=== PATIENT | female | born 1995 | race Caucasian/White ===

== ENCOUNTER 2017-02-25 20:33 | Emergency (ER) | payer MEDICAID ==
--- NOTE | 2017-02-25 21:45 | ED Physician Documentation ---
History of Present Illness - Stated complaint Stated Complaint: BODY ACHES - Chief complaint Chief Complaint: General - History obtained from History obtained from: Patient - History of Present Illness Timing: How many weeks ago (8) Improved by: no ameliorating factors Worsened by: no exacerbating factors - Additonal information Additional information: patient has multiple complaints which all started approximately eight weeks ago , immediately after she received a left arm -control implant device. He complains of fatigue, confusion, abdominal pain, generalized myalgias and aches. Patient moved to [facility] 2 1/2 months ago. Review of Systems Constitutional: reports: Myalgias, Fatigue. denies: Fever Cardiac: reports: Reviewed and negative Respiratory: denies: Dyspnea GI: reports: Abdominal Pain. denies: Vomiting : denies: Dysuria Skin: denies: Rash Musculoskeletal: denies: Extremity pain Neurologic: reports: Confused, Headache. 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 : None HEENT: None Psych: None Musculoskeletal: None Derm: None - Past Surgical History Past Surgical History: No - Present Medications Home Medications: Ambulatory Orders Medication Instructions Recorded Confirmed No Known Home Medications [No 02/25/17 02/25/17 Known Home Medications] - Allergies Allergies/Adverse Reactions: Allergies Allergy/AdvReac Type Severity Reaction Status Date / Time No Known Drug Allergies Allergy Verified 02/25/17 20:43 - Social History Does the pt smoke?: Yes Smoking Status: Current every day smoker Does the pt drink ETOH?: No Does the pt have substance abuse?: No - Immunizations Immunizations are current?: Yes - POLST Patient has POLST: No PD ED PE NORMAL - Vitals Vital signs reviewed: Yes - General General: Alert and oriented X 3, No acute distress, Well developed/nourished - HEENT HEENT: PERRL, EOMI, Moist mucous membranes - Neck Neck: Supple, no meningeal sign - Cardiac Cardiac: RRR, No murmur - Respiratory Respiratory: No respiratory distress, Clear bilaterally - Abdomen Abdomen: Soft, Non tender - Derm Derm: No rash - Neuro Neuro: Alert and oriented X 3, sustainable design coordinator 2-12 intact, No motor deficit, No sensory deficit, Normal speech Eye Opening: Spontaneous Motor: Obeys Commands Verbal: Oriented GCS Score: 15 Results - Vitals Vitals: Oxygen O2 Source Room air - Labs Labs: Laboratory Tests 02/25/17 02/25/17 02/25/17 22:24 22:34 22:34 WBC 13.3 H RBC 4.25 Hgb 12.4 Hct 37.1 MCV 87.3 MCH 29.2 MCHC 33.4 RDW 13.3 Plt Count 248 MPV 8.4 Neut # 8.1 H Lymph # 3.9 H [place] # 0.9 Eos # 0.4 Baso # 0.2 H Absolute Nucleated RBC 0.01 Nucleated RBC % 0.0 Sodium Potassium Chloride Carbon Dioxide Anion Gap BUN Creatinine Estimated GFR (MDRD) Glucose Calcium Total Bilirubin AST ALT Alkaline Phosphatase Total Protein Albumin Globulin Albumin/Globulin Ratio Lipase Urine Color YELLOW Urine Clarity CLEAR Urine pH 6.5 Ur Specific [place] 1.025 1.025 Urine Protein NEGATIVE Urine Glucose (UA) NEGATIVE Urine Ketones NEGATIVE Urine Occult Blood NEGATIVE Urine Nitrite NEGATIVE Urine Bilirubin NEGATIVE Urine Urobilinogen 0.2 (NORMAL) Ur Leukocyte Esterase NEGATIVE Ur Microscopic Review NOT INDICATED Urine Culture Comments NOT INDICATED Urine HCG, Qual NEGATIVE 02/25/17 22:43 WBC RBC Hgb Hct MCV MCH MCHC RDW Plt Count MPV Neut # Lymph # [place] # Eos # Baso # Absolute Nucleated RBC Nucleated RBC % Sodium 139 Potassium 3.8 Chloride 105 Carbon Dioxide 24 Anion Gap 10.0 BUN 10 Creatinine 0.5 Estimated GFR (MDRD) 157 Glucose 92 Calcium 9.2 Total Bilirubin < 0.2 L AST 14 ALT 13 Alkaline Phosphatase 71 Total Protein 7.7 Albumin 3.9 Globulin 3.8 Albumin/Globulin Ratio 1.0 Lipase 25 Urine Color Urine Clarity Urine pH Ur Specific [place] Urine Protein Urine Glucose (UA) Urine Ketones Urine Occult Blood Urine Nitrite Urine Bilirubin Urine Urobilinogen Ur Leukocyte Esterase Ur Microscopic Review Urine Culture Comments Urine HCG, Qual PD MEDICAL DECISION MAKING - ED course Complexity details: reviewed results, re-evaluated patient, considered differential, d/w patient ED course: there is a broad differential diagnosis given her variety of complaints, although her appearance and physical exam suggest against an emergent, specific , or serious diagnosis. Blood tests and urinalysis are unremarkable except for mild leukocytosis. these results were discussed with the patient who expressed that she was reassured by the remarkable results. Departure - Departure Disposition: 01 Home, Self Care Clinical Impression: Generalized muscle ache Condition: Good Instructions: ED Symptoms No Dx Follow-Up: [facility] [Provider Group] Comments: With the exception of a mild elevation in your white blood cell count, your blood tests and urinalysis were otherwise normal. These results are reassuring even though they have not resulted in a diagnosis. The elevated white blood cell count is nonspecific (does not suggest a particular diagnosis), and is not elevated to an extent that would need further testing at this time. Discharge Date/Time: 02/25/17 23:46
[2017-02-25 22:45] LABS: BILIRUBIN,TOTAL < 0.2 mg/dL (0.2-1.0); BUN - BLOOD UREA NITROGEN 10 mg/dL (6-20); CALCIUM 9.2 mg/dL (8.5-10.3); CARBON DIOXIDE - CO2 24 mmol/L (21-32); CHLORIDE 105 mmol/L (101-111); CREATININE 0.5 mg/dL (0.4-1.0); GFR - MDRD 157 (>89); GLUCOSE 92 mg/dL (70-100); LIPASE 25 U/L (22-51); POTASSIUM 3.8 mmol/L (3.5-5.0); SODIUM 139 mmol/L (135-145); TOTAL PROTEIN 7.7 g/dL (6.7-8.2)
[2017-02-25 22:49] LABS: BASOPHILS # (AUTO) 0.2 10^3/uL (0.0-0.1); BASOPHILS % (AUTO) 1.2 %; EOSINOPHILS # (AUTO) 0.4 10^3/uL (0.0-0.7); EOSINOPHILS % (AUTO) 2.6 %; HCT - HEMATOCRIT 37.1 % (37.0-47.0); HGB - HEMOGLOBIN 12.4 g/dL (12.0-16.0); LYMPHOCYTES # (AUTO) 3.9 10^3/uL (1.5-3.5); MEAN CORPUSCULAR HEMOGLOBIN 29.2 pg (27.0-31.0); MEAN CORPUSCULAR HGB CONC 33.4 g/dL (32.0-36.0); MEAN CORPUSCULAR VOLUME 87.3 fL (81.0-99.0); MEAN PLATELET VOLUME 8.4 fL (7.9-10.8); MONOCYTES # (AUTO) 0.9 10^3/uL (0.0-1.0); MONOCYTES % (AUTO) 6.6 %; NEUTROPHILS # (AUTO) 8.1 10^3/uL (1.5-6.6); NEUTROPHILS % (AUTO) 60.6 %; RED BLOOD COUNT 4.25 10^6/uL (4.20-5.40); RED CELL DISTRIBUTION WIDTH 13.3 % (12.0-15.0); UNCORRECTED WHITE BLOOD COUNT 13.3 x10^3/uL; WHITE BLOOD COUNT 13.3 x10^3/uL (4.8-10.8)
[2017-02-25 22:59] LABS: BILIRUBIN,URINE NEGATIVE (NEGATIVE); PH,URINE 6.5 PH (5.0-7.5)
[2017-02-25 23:01] LABS: UA CHARGE (STRIP ONLY) YES; UR CULTURE IF IND NOT INDICATED
[2017-02-25 23:02] LABS: HCG UR QUAL NEGATIVE
[2017-02-25 23:46] VITALS: BP 119/70
== END 2017-02-25 23:46 | disposition home or self-care (01) ==
LOC: ED 20:33
DX: M79.1 Myalgia (principal); D72.829 Elevated white blood cell count, unspecified; F17.200 Nicotine dependence, unspecified, uncomplicated
CPT/HCPCS: 36415; 80053; 81001; 81003; 81025; 83690; 85025; 87086; 99282; 99283

== ENCOUNTER 2017-04-05 20:14 | Emergency (ER) | payer MEDICAID ==
[2017-04-05 20:23] VITALS: BP 134/85
[2017-04-05] MEDS ORDERED: IPRATROPIUM/ALBUTEROL 3 ML NEB INH STA (20:44)
[2017-04-05] MEDS ORDERED: predniSONE 20 MG TABLET PO STA (20:44)
[2017-04-05 20:58] LABS: HCG UR QUAL NEGATIVE
--- NOTE | 2017-04-05 21:47 | XRAY Preliminary Report ---
Exam: XR CHEST 2 VIEW X-RAY IMPRESSION: Negative chest. [facility] SITE ID: [id number]
--- NOTE | 2017-04-05 21:47 | XRAY Report ---
EXAM: CHEST RADIOGRAPHY EXAM DATE: 04/05/2017 09:29 PM. CLINICAL HISTORY: Fever, cough. COMPARISON: None. TECHNIQUE: 2 views. FINDINGS: Lungs/Pleura: No focal opacities evident. No pleural effusion. No pneumothorax. Normal volumes. Mediastinum: Heart and mediastinal contours are unremarkable. Other: None. IMPRESSION: Negative chest. [facility] Referring Provider Line: [phone] SITE ID: [id number]
--- NOTE | 2017-04-05 22:08 | ED Physician Documentation ---
PD HPI DYSPNEA - Stated complaint Stated Complaint: SOA - Chief complaint Chief Complaint: Resp - History obtained from History obtained from: Patient, Family - History of Present Illness Timing - onset: How many weeks ago (1) Timing - details: Gradual onset, Still present Worsened by: Coughing, Smoke Associated symptoms: Cough, Wheezing. No: Fever Similar symptoms before: No diagnosis Recently seen: Not recently seen - Additional information Additional information: Patient is a 21 year old female with a history of asthma and daily smoking who is presenting to the emergency department for coughing and shortness of breath. Patient states that it has been going on for about the last week and is getting progressively worse. Patient states that her chest felt tighter today so she came in for evaluation. Review of Systems Constitutional: denies: Fever, Chills Eyes: denies: Decreased vision, Photophobia Ears: denies: Ear pain, Drainage/discharge Nose: reports: Congestion, Sinus pressure / pain Throat: denies: Sore throat Cardiac: denies: Chest pain / pressure, Palpitations, Pedal edema, Calf pain Respiratory: reports: Dyspnea, Cough, Wheezing GI: denies: Nausea, Vomiting : reports: Reviewed and negative Skin: denies: Rash, Lesions Musculoskeletal: denies: Extremity swelling Neurologic: reports: Reviewed and negative PD PAST MEDICAL HISTORY - Past Medical History Cardiovascular: None Respiratory: None Neuro: None Endocrine/Autoimmune: None GI: None RECTIFYING ATTENDANT: None : None HEENT: None Psych: None Musculoskeletal: None Derm: None - Past Surgical History Past Surgical History: No - Present Medications Home Medications: Ambulatory Orders Medication Instructions Recorded Confirmed Albuterol Sulfate [Proventil Hfa 1 - 2 puffs INH Q4H PRN #1 inhaler 04/05/17 Inhaler] predniSONE [Prednisone] 40 mg PO DAILY 5 Days tablet 04/05/17 - Allergies Allergies/Adverse Reactions: Allergies Allergy/AdvReac Type Severity Reaction Status Date / Time No Known Drug Allergies Allergy Verified 02/25/17 20:43 - Social History Does the pt smoke?: Yes Smoking Status: Current every day smoker Does the pt drink ETOH?: No Does the pt have substance abuse?: No - Immunizations Immunizations are current?: Yes - POLST Patient has POLST: No PD ED PE NORMAL - Vitals Vital signs reviewed: Yes - General General: Alert and oriented X 3, No acute distress - HEENT HEENT: Atraumatic, PERRL, Pharynx benign - Neck Neck: Supple, no meningeal sign, No JVD - Cardiac Cardiac: RRR, No murmur, No rub - Abdomen Abdomen: Soft, Non tender, Non distended - Derm Derm: Normal color, Warm and dry, No rash - Extremities Extremities: No deformity, No edema, No calf tenderness / cord - Neuro Neuro: Alert and oriented X 3, No motor deficit, No sensory deficit, Normal speech PD ED PE EXPANDED - Respiratory Respiratory: Wheezing, Right lower lobe, Left lower lobe Results - Vitals Vitals: Vital Signs - 24 hr 04/05/17 04/05/17 20:21 21:00 Temperature 36.5 C Heart Rate 107 H 108 H Respiratory 24 22 Rate Blood Pressure 134/85 H O2 Saturation 96 Oxygen O2 Source Room air - Labs Labs: Laboratory Tests 04/05/17 20:35 Ur Specific [place] 1.025 Urine HCG, Qual NEGATIVE - Rads (name of study) chest x-ray Radiology: Final report received (no acute pathology) PD MEDICAL DECISION MAKING - ED course Complexity details: reviewed old records, reviewed results, re-evaluated patient , considered differential, d/w patient, d/w family ED course: Patient was seen and examined at bedside. Patient had bilateral wheezing and was treated with duonebs and steroids. Chest x-ray was performed and within normal limits. Patient responded to the nebulizer treatments and the wheezing resolved. Patient required no further work up and was stable for discharge with outpatient follow up. Departure - Departure Disposition: 01 Home, Self Care Clinical Impression: Bronchitis Condition: Good Instructions: ED Bronchitis Asthmatic Follow-Up: primary,care provider [Other] - Within 3 Days Prescriptions: Albuterol Sulfate [Proventil Hfa Inhaler] 1 - 2 puffs INH Q4H PRN #1 inhaler PRN Reason: Shortness Of Air/Wheezing predniSONE [Prednisone] 40 mg PO DAILY 5 Days tablet Comments: Your chest x-ray was normal today. there was no sign of pneumonia. You should take the steroids for the next 4 days and use the inhaler every 2 to 4 hours as needed. The most important thing you can do is to quit smoking. You should follow up with your doctor for routine care. You may return to the emergency department at any time for new, worsening or uncontrollable symptoms. Discharge Date/Time: 04/05/17 22:14
== END 2017-04-05 22:14 | disposition home or self-care (01) ==
LOC: ED 20:14
DX: J40 Bronchitis, not specified as acute or chronic (principal); F17.200 Nicotine dependence, unspecified, uncomplicated
CPT/HCPCS: 71046; 81025; 94640; 99283; J7512; J7620

== ENCOUNTER 2017-08-08 20:50 | Emergency (ER) | payer MEDICAID ==
[2017-08-08] MEDS ORDERED: IPRATROPIUM/ALBUTEROL 3 ML NEB INH STA ×2 (21:19→21:41)
[2017-08-08] MEDS ORDERED: predniSONE 20 MG TABLET PO STA (21:41)
[2017-08-08 22:35] VITALS: BP 104/61
--- NOTE | 2017-08-08 22:57 | ED Physician Documentation ---
PD HPI DYSPNEA - Stated complaint Stated Complaint: SOA/COUGH - Chief complaint Chief Complaint: Resp - History obtained from History obtained from: Patient - History of Present Illness Timing - onset: Yesterday Timing - onset during: Rest Timing - details: Gradual onset, Still present Inciting event(s): Exposure (ie smoke) Associated symptoms: Cough, Wheezing Similar symptoms before: Work up / diagnostics, Treatment Recently seen: Not recently seen - Additional information Additional information: Patient is a 21 year old female with a history of asthma who is presenting to the emergency department for shortness of breath and wheezing. Patient states that her symptoms have been going on the last few days but she does not have an inhaler. 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 : None HEENT: None Psych: None Musculoskeletal: None Derm: None - Past Surgical History Past Surgical History: No - Present Medications Home Medications: Ambulatory Orders Medication Instructions Recorded Confirmed Albuterol Sulfate [Proventil Hfa 1 - 2 puffs INH Q4H PRN #1 inhaler 04/05/17 Inhaler] predniSONE [Prednisone] 40 mg PO DAILY 5 Days tablet 04/05/17 Albuterol Sulfate [Proventil Hfa 1 - 2 puffs INH Q4H PRN #1 inhaler 08/08/17 Inhaler] Benzonatate [Tessalon Perle] 100 mg PO TID #14 capsule 08/08/17 predniSONE [Prednisone] 40 mg PO DAILY 5 Days tablet 08/08/17 - Allergies Allergies/Adverse Reactions: Allergies Allergy/AdvReac Type Severity Reaction Status Date / Time No Known Drug Allergies Allergy Verified 08/08/17 20:56 - Social History Does the pt smoke?: Yes Smoking Status: Current every day smoker Does the pt drink ETOH?: No Does the pt have substance abuse?: No - Immunizations Immunizations are current?: Yes - POLST Patient has POLST: No PD ED PE NORMAL - Vitals Vital signs reviewed: Yes - General General: Alert and oriented X 3 - HEENT HEENT: Atraumatic - Abdomen Abdomen: Non distended - Derm Derm: Normal color, Warm and dry - Extremities Extremities: No edema, No calf tenderness / cord - Neuro Neuro: Alert and oriented X 3 Eye Opening: Spontaneous PD ED PE EXPANDED - Cardiac Cardiac: Tachy - Respiratory Respiratory: Accessory mm use, Wheezing, Right upper lobe, Right middle lobe, Right lower lobe, Left upper lobe, Left lower lobe Results - Vitals Vitals: Vital Signs - 24 hr 08/08/17 08/08/17 08/08/17 20:53 21:30 21:43 Temperature 36.0 C L Heart Rate 125 H 124 H 133 H Respiratory 24 24 20 Rate Blood Pressure 124/80 142/94 H O2 Saturation 98 95 08/08/17 08/08/17 08/08/17 21:49 22:34 23:08 Temperature Heart Rate 128 H 133 H Respiratory 20 17 17 Rate Blood Pressure 104/61 O2 Saturation 96 Oxygen O2 Source Nasal cannula PD MEDICAL DECISION MAKING - ED course Complexity details: reviewed old records, reviewed results, re-evaluated patient , considered differential, d/w patient ED course: Patient was seen and examined at bedside. Patient had diffuse wheezing in every field. patient was treated with duoneb and steroids empirically. Patient improved but continued to wheeze. Patient was treated with two additional duonebs. Patient responded well and her wheezing nearly resolved. Patient stated she was feeling much better and ready to return home. Patient required no further work up and was stable for discharge with outpatient follow up. Departure - Departure Disposition: 01 Home, Self Care Clinical Impression: Asthma Condition: Good Instructions: Asthma Dc Follow-Up: primary,care provider [Other] - Within 3 Days Prescriptions: Albuterol Sulfate [Proventil Hfa Inhaler] 1 - 2 puffs INH Q4H PRN #1 inhaler PRN Reason: Shortness Of Air/Wheezing Benzonatate [Tessalon Perle] 100 mg PO TID #14 capsule predniSONE [Prednisone] 40 mg PO DAILY 5 Days tablet Comments: Your symptoms today are being caused by an asthma exacerbation. You are being started on a short course of steroids and being prescribed an inhaler. You can take tessalon as needed for cough, as well as over the counter cough and cold medications. You should follow up with your doctor if your symptoms persist. You may return to the emergency department at any time for new, worsening or uncontrollable sympotms. Discharge Date/Time: 08/08/17 23:09
== END 2017-08-08 23:09 | disposition home or self-care (01) ==
LOC: ED 20:50
DX: J45.901 Unspecified asthma with (acute) exacerbation (principal); F17.200 Nicotine dependence, unspecified, uncomplicated; Z79.51 Long term (current) use of inhaled steroids
CPT/HCPCS: 94640; 94664; 99283; J7512

== ENCOUNTER 2018-11-20 16:24 | Emergency (ER) | payer MEDICAID ==
--- NOTE | 2018-11-20 20:27 | ED Physician Documentation ---
PD HPI UPPER EXT INJURY - Stated complaint Stated Complaint: L HAND NUMBNESS - Chief complaint Chief Complaint: Ext Problem - History obtained from History obtained from: Patient - History of Present Illness Location: Left, Wrist, Hand Type of injury: Other (she awoke from a nap with left arm/wrist feeling weak and numbness of hand, mainly radial side (thumb and index finger). She can lift at shoulder okay. She has been having left lower molar tooth pain for days and has appt with dentist in few days.). No: Fall, Twist Where injury occurred: Home Timing - onset: Today Timing - details: Abrupt onset, Still present Worsened by: Moving Associated symptoms: Weakness (wrist and hand), Numbness Similar symptoms before: Has not had sx before Review of Systems Constitutional: denies: Fever, Chills, Myalgias Throat: reports: Dental pain / toothache (left lower molar with pain and gum swelling) Skin: denies: Rash, Lesions Musculoskeletal: reports: Neck pain (lateral neck when awoke.). 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 : None HEENT: None Psych: None Musculoskeletal: None Derm: None - Past Surgical History Past Surgical History: No - Present Medications Home Medications: Ambulatory Orders Medication Instructions Recorded Confirmed Albuterol Sulfate [Proventil Hfa 1 - 2 puffs INH Q4H PRN #1 inhaler 04/05/17 Inhaler] predniSONE [Prednisone] 40 mg PO DAILY 5 Days tablet 04/05/17 Albuterol Sulfate [Proventil Hfa 1 - 2 puffs INH Q4H PRN #1 inhaler 08/08/17 Inhaler] Benzonatate [Tessalon Perle] 100 mg PO TID #14 capsule 08/08/17 predniSONE [Prednisone] 40 mg PO DAILY 5 Days tablet 08/08/17 Doxycycline Hyclate 100 mg PO BID #20 capsule 11/20/18 Methocarbamol [Robaxin] 500 mg PO Q6H PRN #30 tablet 11/20/18 Naproxen 500 mg PO BID #20 tablet 11/20/18 - Allergies Allergies/Adverse Reactions: Allergies Allergy/AdvReac Type Severity Reaction Status Date / Time No Known Drug Allergies Allergy Verified 11/20/18 16:34 - Social History Does the pt smoke?: Yes Smoking Status: Current every day smoker Does the pt drink ETOH?: No Does the pt have substance abuse?: No - Immunizations Immunizations are current?: Yes - POLST Patient has POLST: No PD ED PE NORMAL - Vitals Vital signs reviewed: Yes - General General: Alert and oriented X 3, No acute distress, Well developed/nourished - HEENT HEENT: No: Dentition benign (left lower 3rd molar with cavity and tissue partial impaction, with mild gum swelling but no fluctuance. Left anterior neck with tenderness but no swelling nor adenopathy. No redness. ) - Neck Neck: Supple, no meningeal sign, No bony TTP - Derm Derm: Normal color, Warm and dry - Extremities Extremities: Other (left wrist and hand with weakness, minimal shift boss. Thumb and index with decreased sensation. Elbow and shoulder movement is good. ) - Neuro Neuro: Alert and oriented X 3, stamping die try out worker 2-12 intact, Normal speech Eye Opening: Spontaneous Motor: Obeys Commands Verbal: Oriented GCS Score: 15 Results - Vitals Vitals: Oxygen O2 Source Room air PD MEDICAL DECISION MAKING - ED course Complexity details: considered differential (she had woken up with arm weakness and numbness and wrist drop. I think it was more positional with radial nerve palsy and not related to dental pain. ), d/w patient Departure - Departure Disposition: 01 Home, Self Care Clinical Impression: Dental infection Neuropraxia of left upper extremity Qualifiers: Encounter type: initial encounter Qualified Code(s): S44.92XA - Injury of unspecified nerve at shoulder and upper arm level, left arm, initial encounter Condition: Stable Record reviewed to determine appropriate education?: Yes Instructions: ED Palsy Radial Nerve Follow-Up: [facility] [Provider Group] [facility] [Provider Group] [facility] [Provider Group] Prescriptions: Doxycycline Hyclate 100 mg PO BID #20 capsule Methocarbamol [Robaxin] 500 mg PO Q6H PRN #30 tablet PRN Reason: Spasms Naproxen 500 mg PO BID #20 tablet Comments: Doxycycline and ibuprofen for your dental pain and infection. I presume your left arm weakness is from stretch and inflammation of the nerves into the shoulder and from the neck. Use a sling to reduce the amount of stretch on the shoulder. Ibuprofen again as an anti-inflammatory. Robaxin muscle relaxant for stiffness around the shoulder and neck. Recheck if not improved over the next few days regarding the arm. Follow-up with your dentist regarding the tooth. Forms: Activity restrictions Discharge Date/Time: 11/20/18 21:10
[2018-11-20] MEDS ORDERED: IBUPROFEN 600 MG TABLET PO STA (20:43)
[2018-11-20] MEDS ORDERED: CHERRY SYRUP 10 ML UDC PO ONE (20:44)
[2018-11-20] MEDS ORDERED: DOXYCYCLINE 100 MG TABLET PO STA (20:44)
[2018-11-20] MEDS ORDERED: DEXAMETHASONE 10 MG/ML VIAL PO STA (20:44)
[2018-11-20] MEDS ORDERED: METHOCARBAMOL 500 MG TABLET PO STA (20:44)
[2018-11-20 21:10] VITALS: BP 131/66
== END 2018-11-20 21:10 | disposition home or self-care (01) ==
LOC: ED 16:24
DX: S64.22XA Injury of radial nerve at wrist and hand level of left arm, initial encounter (principal); X58.XXXA Exposure to other specified factors, initial encounter; K04.7 Periapical abscess without sinus; K02.9 Dental caries, unspecified; M54.2 Cervicalgia; F17.200 Nicotine dependence, unspecified, uncomplicated
CPT/HCPCS: 99283; 99284; A9270

== ENCOUNTER 2018-12-11 16:40 | Emergency (ER) | payer MEDICAID ==
[2018-12-11 17:01] VITALS: BP 113/67
[2018-12-11] MEDS ORDERED: PENICILLIN VK 250 MG TABLET PO STA (18:51)
[2018-12-11] MEDS ORDERED: HYDROcod/ACETAM 5/325 MG TABLET PO STA (18:51)
--- NOTE | 2018-12-11 18:54 | ED Physician Documentation ---
History of Present Illness - Stated complaint Stated Complaint: TOOTH PX - Chief complaint Chief Complaint: General - History obtained from History obtained from: Patient - History of Present Illness Timing: Today Pain level max: 8 Pain level now: 8 - Additonal information Additional information: 23-year-old female scheduled to have dental extractions done in approximately 10 days. Started developing left lower tooth pain around noon today, gradually worsened throughout the day. Concerned it is becoming infected again. No fevers. 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 : None HEENT: None Psych: None Musculoskeletal: None Derm: None - Past Surgical History Past Surgical History: No - Present Medications Home Medications: Ambulatory Orders Medication Instructions Recorded Confirmed Albuterol Sulfate [Proventil Hfa 1 - 2 puffs INH Q4H PRN #1 inhaler 04/05/17 Inhaler] predniSONE [Prednisone] 40 mg PO DAILY 5 Days tablet 04/05/17 Albuterol Sulfate [Proventil Hfa 1 - 2 puffs INH Q4H PRN #1 inhaler 08/08/17 Inhaler] Benzonatate [Tessalon Perle] 100 mg PO TID #14 capsule 08/08/17 predniSONE [Prednisone] 40 mg PO DAILY 5 Days tablet 08/08/17 Doxycycline Hyclate 100 mg PO BID #20 capsule 11/20/18 Methocarbamol [Robaxin] 500 mg PO Q6H PRN #30 tablet 11/20/18 Naproxen 500 mg PO BID #20 tablet 11/20/18 Hydrocodone/Acetaminophen 1 - 2 each PO Q6H PRN #14 tablet 12/11/18 [Hydrocodon-Acetaminophen 5-325] Penicillin V Potassium 500 mg PO Q6HR #40 tablet 12/11/18 - Allergies Allergies/Adverse Reactions: Allergies Allergy/AdvReac Type Severity Reaction Status Date / Time No Known Drug Allergies Allergy Verified 11/20/18 16:34 - Social History Does the pt smoke?: Yes Smoking Status: Current every day smoker Does the pt drink ETOH?: No Does the pt have substance abuse?: No - Immunizations Immunizations are current?: Yes - POLST Patient has POLST: No PD ED PE NORMAL - Vitals Vital signs reviewed: Yes - General General: Alert and oriented X 3, No acute distress - HEENT HEENT: Other (L lower mandible - mild swelling. no fluctuance. diffuse dental decay. no swelling on the floor of the mouth. ) - Neck Neck: Supple, no meningeal sign, No adenopathy - Derm Derm: Warm and dry - Neuro Neuro: Alert and oriented X 3 - Psych Psych: Normal mood Results - Vitals Vitals: Oxygen O2 Source Room air PD MEDICAL DECISION MAKING - ED course Complexity details: considered differential, d/w patient ED course: 23-year-old female with diffuse dental decay. No gingival abscess. No Andrés's angina. No drainable abscess. Will place on antibiotics and follow-up with dentistry. Patient counseled regarding signs and symptoms for which I believe and urgent re-evaluation would be necessary. Patient with good understanding of and agreement to plan and is comfortable going home at this time This document was made in part using voice recognition software. While efforts are made to proofread this document, sound alike and grammatical errors may occur. Departure - Departure Disposition: 01 Home, Self Care Clinical Impression: Dental infection Condition: Good Instructions: ED Cavity Dental Follow-Up: Your,dentist within 3 days [Other] Prescriptions: Penicillin V Potassium 500 mg PO Q6HR #40 tablet Hydrocodone/Acetaminophen [Hydrocodon-Acetaminophen 5-325] 1 - 2 each PO Q6H PRN #14 tablet PRN Reason: pain Comments: Take all antibiotics until gone. Return if you worsen. You need to follow-up closely with your dentist. Return for fevers or worsening swelling. Discharge Date/Time: 12/11/18 19:08
== END 2018-12-11 19:08 | disposition home or self-care (01) ==
LOC: ED 16:40
DX: K04.7 Periapical abscess without sinus (principal); K02.9 Dental caries, unspecified; F17.200 Nicotine dependence, unspecified, uncomplicated
CPT/HCPCS: 99282; 99283; A9270

== ENCOUNTER 2019-05-23 03:06 | Emergency (ER) | payer MEDICAID ==
[2019-05-23 03:12] VITALS: BP 150/85
--- NOTE | 2019-05-23 03:13 | ED Physician Documentation ---
PD HPI URI - Stated complaint Stated Complaint: RUNNY NOSE/CONGESTION - Chief complaint Chief Complaint: Heent - History obtained from History obtained from: Patient - History of Present Illness Timing - onset: How many days ago (2-3) Timing duration: Days Timing details: Gradual onset Associated symptoms: Nasal congestion, Rhinorrhea, Sinus pain, Dry cough. No: Fever Recently seen: Not recently seen Review of Systems Constitutional: denies: Fever Ears: denies: Ear pain Nose: reports: Rhinorrhea / runny nose, Congestion, Sinus pressure / pain Throat: denies: Sore throat Cardiac: denies: Chest pain / pressure Respiratory: reports: Cough PD PAST MEDICAL HISTORY - Past Medical History Cardiovascular: None Respiratory: Asthma Endocrine/Autoimmune: None GI: None RESIN FILTERER: None : None HEENT: None Psych: None Musculoskeletal: None Derm: None - Past Surgical History Past Surgical History: No - Present Medications Home Medications: Ambulatory Orders Medication Instructions Recorded Confirmed Albuterol Sulfate [Proventil Hfa 1 - 2 puffs INH Q4H PRN #1 inhaler 04/05/17 Inhaler] predniSONE [Prednisone] 40 mg PO DAILY 5 Days tablet 04/05/17 Albuterol Sulfate [Proventil Hfa 1 - 2 puffs INH Q4H PRN #1 inhaler 08/08/17 Inhaler] Benzonatate [Tessalon Perle] 100 mg PO TID #14 capsule 08/08/17 predniSONE [Prednisone] 40 mg PO DAILY 5 Days tablet 08/08/17 Doxycycline Hyclate 100 mg PO BID #20 capsule 11/20/18 Naproxen 500 mg PO BID #20 tablet 11/20/18 methocarbamoL [Robaxin] 500 mg PO Q6H PRN #30 tablet 11/20/18 Hydrocodone/Acetaminophen 1 - 2 each PO Q6H PRN #14 tablet 12/11/18 [Hydrocodon-Acetaminophen 5-325] Penicillin V Potassium 500 mg PO Q6HR #40 tablet 12/11/18 - Allergies Allergies/Adverse Reactions: Allergies Allergy/AdvReac Type Severity Reaction Status Date / Time No Known Drug Allergies Allergy Verified 11/20/18 16:34 - Social History Does the pt smoke?: Yes Smoking Status: Current every day smoker Does the pt drink ETOH?: No Does the pt have substance abuse?: No - Immunizations Immunizations are current?: Yes - POLST Patient has POLST: No PD ED PE NORMAL - Vitals Vital signs reviewed: Yes - General General: Alert and oriented X 3, No acute distress, Well developed/nourished - HEENT HEENT: Moist mucous membranes, Pharynx benign, Other (boggy, inflamed mucosa bilateral nares) - Neck Neck: Supple, no meningeal sign - Cardiac Cardiac: RRR, No murmur - Respiratory Respiratory: No respiratory distress, Clear bilaterally Results - Vitals Vitals: Oxygen O2 Source Room air PD MEDICAL DECISION MAKING - ED course Complexity details: considered differential, d/w patient Departure - Departure Disposition: 01 Home, Self Care Clinical Impression: Sinusitis, Bronchitis Condition: Good Instructions: ED Upper Resp Infec No Abx Tx, ED Sinusitis No Abx Forms: Activity restrictions Discharge Date/Time: 05/23/19 03:34
== END 2019-05-23 03:34 | disposition home or self-care (01) ==
LOC: ED 03:06
DX: J32.9 Chronic sinusitis, unspecified (principal); J40 Bronchitis, not specified as acute or chronic; F17.200 Nicotine dependence, unspecified, uncomplicated
CPT/HCPCS: 99282; 99283

== ENCOUNTER 2020-08-28 02:01 | Emergency (ER) | payer MEDICAID ==
--- NOTE | 2020-08-28 03:07 | ED Physician Documentation ---
PD HPI DYSPNEA - Stated complaint Stated Complaint: SOA - Chief complaint Chief Complaint: Resp - History obtained from History obtained from: Patient - History of Present Illness Timing - onset: How many hours ago (6) Timing - details: Gradual onset Pain level now: 0 Worsened by: Other Associated symptoms: Cough (productive of scant clear/white mucous), Wheezing, Chest pain / discomfort. No: Fever, Palpitations, Unilateral edema Similar symptoms before: Has not had sx before Review of Systems Constitutional: denies: Fever Cardiac: reports: Chest pain / pressure. denies: Palpitations, Pedal edema Respiratory: reports: Dyspnea, Cough, Wheezing GI: reports: Reviewed and negative : denies: Now EGA PD PAST MEDICAL HISTORY - Past Medical History Past Medical History: Yes Cardiovascular: None Respiratory: Asthma Neuro: None Endocrine/Autoimmune: None GI: None COMPENSATION DIRECTOR: None : None HEENT: None Psych: None Musculoskeletal: None Derm: None - Past Surgical History Past Surgical History: No - Present Medications Home Medications: Ambulatory Orders Medication Instructions Recorded Confirmed Albuterol Sulfate [Proair Hfa 1 - 2 puffs INH Q4H PRN #1 gm 08/28/20 Inhaler] predniSONE [Deltasone] 40 mg PO DAILY 4 Days #8 tablet 08/28/20 - Allergies Allergies/Adverse Reactions: Allergies Allergy/AdvReac Type Severity Reaction Status Date / Time No Known Drug Allergies Allergy Verified 08/28/20 02:18 - Social History Does the pt smoke?: Yes Smoking Status: Current every day smoker Does the pt drink ETOH?: No Does the pt have substance abuse?: No - Immunizations Immunizations are current?: Yes - POLST Patient has POLST: No PD ED PE NORMAL - Vitals Vital signs reviewed: Yes - General General: Alert and oriented X 3, No acute distress, Well developed/nourished - Cardiac Cardiac: RRR, No murmur - Respiratory Respiratory: No respiratory distress - Extremities Extremities: No edema PD ED PE EXPANDED - Respiratory Respiratory: Wheezing (bilateral I/E), Decreased breath sounds (bilateral) Results - Vitals Vitals: Oxygen O2 Source Room air - Labs Labs: Laboratory Tests 08/28/20 04:20 Coronavirus (PCR) NEGATIVE - Rads (name of study) chest xray Radiology: Prelim report reviewed, See rad report PD MEDICAL DECISION MAKING - ED course Complexity details: reviewed results, re-evaluated patient, considered differential, d/w patient ED course: On reevaluation after duoneb, patient reports feeling much better. On re- examination, her lungs have markedly increased aeration bilaterally, and only trace end-expiratory wheeze bilaterally. Chest x-ray is unremarkable. Departure - Departure Disposition: 01 Home, Self Care Clinical Impression: Bronchitis with bronchospasm Condition: Good Instructions: ED Bronchitis Asthmatic Prescriptions: predniSONE [Deltasone] 40 mg PO DAILY 4 Days #8 tablet Albuterol Sulfate [Proair Hfa Inhaler] 1 - 2 puffs INH Q4H PRN #1 gm PRN Reason: Shortness Of Air/Wheezing Discharge Date/Time: 08/28/20 06:30
[2020-08-28] MEDS ORDERED: IPRATROPIUM/ALBUTEROL 3 ML NEB INH STA (03:39)
[2020-08-28 06:09] VITALS: BP 152/115
--- NOTE | 2020-08-28 10:58 | XRAY Report ---
PROCEDURE: Chest 2 View X-Ray INDICATIONS: cough, dyspnea TECHNIQUE: 2 view(s) of the chest. COMPARISON: Chest x-ray 04/05/17 FINDINGS: Surgical changes and devices: None. Lungs and pleura: No pleural effusions or pneumothorax. Lungs are clear. Mediastinum: Mediastinal contours are normal. Heart size is normal. Bones and chest wall: No suspicious bony abnormalities. Soft tissues appear unremarkable. IMPRESSION: No acute pulmonary process. Reviewed by: Chandni Hernandez MD on 08/28/2020 10:57 AM PDT Approved by: Chandni Hernandez MD on 08/28/2020 10:57 AM PDT Station ID: [id number]
== END 2020-08-28 06:30 | disposition home or self-care (01) ==
LOC: ED 02:01
DX: J40 Bronchitis, not specified as acute or chronic (principal); Z20.822 Contact with and (suspected) exposure to COVID-19; F17.200 Nicotine dependence, unspecified, uncomplicated
CPT/HCPCS: 94640; 94664; 99283